=== PATIENT | male | born 1960 | race Caucasian/White ===

== ENCOUNTER → 2018-04-23 | Outpatient (REF) | payer OTHER ==
[~2018-04-23] MED LIST: LISI-538 PO
[2018-04-23 14:16] LABS: APPEARANCE, URINE CLEAR (CLEAR); BACTERIA, URINE AUTO NEGATIVE (NEGATIVE); BILIRUBIN, URINE AUTO NEGATIVE (NEGATIVE); BLOOD, URINE BLOOD NEGATIVE (NEGATIVE); COLOR, URINE YELLOW (YELLOW); GLUCOSE, URINE (UA) AUTO NEGATIVE (NEGATIVE); KETONE, URINE AUTO NEGATIVE (NEGATIVE); LEUKOCYTE ESTERASE, URINE AUTO NEGATIVE (NEGATIVE); MUCUS, URINE SMALL (NEGATIVE); NITRITE, URINE AUTO NEGATIVE (NEGATIVE); PROTEIN, URINE AUTO NEGATIVE (NEGATIVE); RBC, URINE AUTO 1 /HPF (0-3); SPECIFIC GRAVITY URINE AUTO 1.015 (1.002-1.035); SQUAMOUS EPITHELIAL CELL UR AU 0 /HPF (0-6); WBC, URINE AUTO 0 /HPF (0-3)
== END ==
LOC: M SMT 12:53
PROVIDERS: ATTEND Nurse Practitioner Family
DX: R31.9 Hematuria, unspecified (principal)

== ENCOUNTER → 2018-05-31 | Outpatient (CLI) | payer OTHER ==
--- NOTE | 2018-05-31 19:39 | REP ---
MRI CERVICAL SPINE: Multiple sequences were obtained in the sagittal and axial planes. Vertebral bodies are normal in height and are well aligned with normal cervical lordosis. There is no compression fracture or malalignment. There is no prevertebral soft-tissue swelling. There is no abnormal bone marrow signal. There is loss of water signal and disc degeneration diffusely. There is minor disc space narrowing at C5-6. No abnormal signal is seen in the cervical spinal cord. There is no significant disc bulging or herniation at C2-3 or C3-4, with no spinal stenosis. At C4-5 there is a small central disc protrusion effacing the anterior subarachnoid space. The cord is not significantly compressed and the neural foramina are patent. At C5-6 and C6-7 there is mild diffuse disc bulging and uncovertebral spurring asymmetrically in the midline and to the left. This effaces the anterior subarachnoid space but does not cause significant cord compression or neural foraminal narrowing. No other significant findings are seen. IMPRESSION: Small central disc protrusion at C4-5 with effacement of the anterior subarachnoid space. Mild asymmetric diffuse disc bulging and uncovertebral spurring centrally and to the left at both the C5-6 and C6-7 levels. There is effacement of the anterior subarachnoid space. There is no significant cord compression at any level and no significant neural foraminal narrowing. Electronically Signed by Jeremy Caputo MD 06/02/2018 09:56 A
== END ==
LOC: M RAD 16:54
PROVIDERS: ATTEND Nurse Practitioner Family
DX: M50.20 Other cervical disc displacement, unspecified cervical region (principal)

== ENCOUNTER → 2019-04-11 | Outpatient (CLI) | payer OTHER ==
--- NOTE | 2019-04-11 09:56 | REPPI ---
RIGHT HIP, TWO VIEWS: Two views right hip are performed. No acute fracture or dislocation is seen. There is no bone lesion. There is mild joint space narrowing, subchondral sclerosis and spurring at the hip joint. IMPRESSION: Mild arthritic change. Electronically Signed by Jeremy Caputo MD 04/11/2019 01:23 P
--- NOTE | 2019-04-11 10:09 | REPPI ---
AP STANDING BILATERAL KNEES: AP standing view of bilateral knees performed. No fracture or dislocation is seen. Joint spaces appear normal bilaterally without significant arthritic change radiographically. IMPRESSION: Negative exam. Electronically Signed by Jeremy Caputo MD 04/11/2019 01:23 P
[2019-04-11 12:53] LABS: BASO # 0.1 10^3/uL (0.0-0.2); BASO % 0.8 % (0.0-1.0); EOS # 0.2 10^3/uL (0.0-0.5); EOS % 1.6 % (0.0-3.0); HEMATOCRIT 49.4 % (42.0-52.0); HEMOGLOBIN 17.1 g/dl (13.5-17.5); LYMPH # 1.8 10^3/uL (1.5-5.0); LYMPH % 17.4 % (24.0-44.0); MEAN CORPUSCULAR HEMOGLOBIN 29.7 pg (27.0-33.0); MEAN CORPUSCULAR HGB CONC 34.6 g/dl (32.0-36.5); MEAN CORPUSCULAR VOLUME 85.9 fl (80.0-96.0); MONO # 0.8 10^3/uL (0.0-0.8); MONO % 7.2 % (0.0-5.0); NEUTROPHILS # 7.7 10^3/uL (1.5-8.5); NEUTROPHILS % 72.2 % (36.0-66.0); PLATELET COUNT, AUTOMATED 254 10^3/uL (150-450); RED BLOOD COUNT 5.75 10^6/uL (4.30-6.10); WHITE BLOOD COUNT 10.6 10^3/uL (4.0-10.0)
[2019-04-11 13:06] LABS: C REACTIVE PROTEIN QUANTITATIV 0.63 MG/DL (0.00-0.30); RHEUMATOID FACTOR QUANT < 10.0 IU/ML (<15.0)
[2019-04-11 13:19] LABS: ERYTHROCYTE SEDIMENTATION RATE 7 mm/hr (0-20)
[2019-04-13 00:06] LABS: ANA (HEP2) Negative (.); CYCLIC CITRULLINATED PEPTIDE 11 units (0-19)
== END ==
LOC: M PLAIMG 08:36
PROVIDERS: ATTEND Internal Medicine Infectious Disease
DX: M25.561 Pain in right knee (principal); M25.562 Pain in left knee